=== PATIENT | female | born 1985 | race Two or more races ===

== ENCOUNTER 2024-04-29 20:45 | Emergency (ER) | payer OTHER ==
[~2024-04-29] VITALS: Ht 157.5 cm; Wt 97.5 kg
[2024-04-29 21:58] LABS: HEMATOCRIT 42.4 % (36.0-45.00); HEMOGLOBIN 14.3 g/dL (12.0-15.00); MEAN CELL VOLUME 86.3 fL (80.00-100.00); MEAN CORPUSCULAR HEMOGLOBIN 29.2 pg (27.00-32.0); MEAN CORPUSCULAR HGB CONC 33.8 g/dl (32.0-36.0); PLATELET COUNT 288 K/uL (150-450); RED BLOOD COUNT 4.92 M/uL (4.00-6.00); RED CELL DISTRIBUTION WIDTH 14.2 % (11.5-14.5)
[2024-04-29 22:08] LABS: D DIMER 0.68 MG/L; PARTIAL THROMBOPLASTIN TIME 28.7 SECONDS (22.0-34.0)
[2024-04-29 22:09] LABS: INR 0.96; PROTHROMBIN TIME 10.5 SECONDS (9.0-11.5)
[2024-04-29 22:23] LABS: ALBUMIN 3.6 gm/dL (3.4-5.0); BILIRUBIN TOTAL 0.29 mg/dL (0.3-1.2); CALCIUM 8.7 mg/dL (8.5-10.1); CREATININE SERUM 0.7 mg/dL (0.55-1.02); GFR 92.68; GLOBULINA 4.3 G/DL (2.4-3.5); POTASSIUM 3.69 mEq/L (3.5-5.1); TOTAL PROTEIN 7.9 gm/dL (6.4-8.2)
[2024-04-29] MEDS ORDERED: CLOPIDOGREL BISULFATE 75 MG TABLET PO ONE ×2 (23:30→23:46)
== END 2024-04-30 13:34 | disposition home or self-care (01) ==
LOC: ER 20:48
PROVIDERS: Preventive Medicine Public Health & General Preventive Medicine
DX: M79.606 Pain in leg, unspecified (principal)